=== PATIENT | male | born 1960 | race African-American/Black ===

== ENCOUNTER 2018-09-03 19:55 | Emergency (ER) | payer OTHER ==
[~2018-09-03] VITALS: Ht 182.9 cm; Wt 73.0 kg
[2018-09-03] MEDS ORDERED: LORazepam Inj 2mg/ml 1ml IVP ONE (20:00)
--- NOTE | 2018-09-03 20:02 | NUR ---
Shahzad yepez in EDM - 09/03/18 at 2022 by LÁZARO ED Nurse Note: Collected blood and urine then sent to lab.
--- NOTE | 2018-09-03 20:02 | NUR ---
ED Nurse Note: Pt brought in by ambulance due to cocaine abuse. Pt admits on taking cocaine and last use was an hour prior to ED arrival. Denies SI. Pt is AAO x4, ambulatory with unlabored breathing. Noted pt to be very restless. No hand tremors.
--- NOTE | 2018-09-03 20:23 | NUR ---
ED Nurse Note: Collected blood and urine then sent to lab.
--- NOTE | 2018-09-03 20:32 | Emergency Room Report ---
History of Present Illness General Chief Complaint: Substance Abuse Source: Patient (Stanley Rodas MD) Present Illness HPI Patient is a 58-year-old male presented after increased agitation. Patient reportedly had been smoking cocaine approximately 1 hour prior to arrival. He reports having increased shortness of breath. Patient was brought in by EMS after increased agitation. Patient history is markedly limited by intoxication. (Stanley Rodas MD) Allergies: Coded Allergies: No Known Allergies (Unverified , 09/03/18) Patient History Past Medical History: see triage record Reviewed Nursing Documentation: PMH: Agreed; PSxH: Agreed (Stanley Rodas MD) Nursing Documentation-PMH Past Medical History: No Stated History (Stanley Rodas MD) Review of Systems All Other Systems: negative except mentioned in HPI (Stanley Rodas MD) Physical Exam Vital Signs Date Time Temp Pulse Resp B/P (MAP) Pulse Ox O2 Delivery O2 Flow Rate FiO2 09/03/18 19:52 98.2 77 24 100 Room Air Sp02 EP Interpretation: reviewed, normal General Appearance: normal inspection, alert Head: atraumatic ENT: normal ENT inspection, hearing grossly normal, normal voice Neck: normal inspection, full range of motion, supple, no bony tend Respiratory: normal inspection, lungs clear, normal breath sounds, no respiratory distress, no retraction, no wheezing Cardiovascular #1: regular rate, rhythm, no edema Gastrointestinal: normal inspection, normal bowel sounds, non tender, soft, no guarding, no hernia Genitourinary: no CVA tenderness Musculoskeletal: normal inspection, back normal, normal range of motion Neurologic: normal inspection, alert, responsive, speech normal Psychiatric: normal inspection, judgement/insight normal, mood/affect normal Skin: normal inspection, normal color, no rash (Stanley Rodas MD) Medical Decision Making Diagnostic Impression: Primary Impression: Substance abuse Additional Impression: Altered mental status Qualified Codes: R40.4 - Transient alteration of awareness ER Course Patient present for shortness of breath. Differential diagnosis include was not limited to pneumonitis, myocardial infarction, congestive heart failure among others. Because of complexity of patient's case laboratory testing and imaging studies were ordered. Patient was noted to be intoxicated with cocaine. He was given breathing treatments patient given IV Ativan. He was noted to have some improvement. (Stanley Rodas MD) ER Course Please see above. Patient previously sedated with Ativan. Patient still lethargic. Unable to ambulate. Signed out to Dr. Olivares. (Boaz Honeycutt MD) ER Course Patient presents to the emergency department today with altered mental status secondary to drug abuse. I received signout and took over care of this patient. I continue to monitor patient here in the emergency department. I reviewed his laboratory testing. Patient is back to baseline mentally. He is able to eat. He is advised to stop abusing drugs. Recommend outpatient follow- up. Patient is advised to follow up with primary doctor in 2-3 days and return the emergency room for any worsening symptoms and as needed. Labs Test 09/03/18 20:15 White Blood Count 12.7 K/UL (4.8-10.8) Red Blood Count 4.49 M/UL (4.70-6.10) Hemoglobin 12.3 G/DL (14.2-18.0) Hematocrit 37.6 % (42.0-52.0) Mean Corpuscular Volume 84 FL (80-99) Mean Corpuscular Hemoglobin 27.4 PG (27.0-31.0) Mean Corpuscular Hemoglobin Concent 32.7 G/DL (32.0-36.0) Red Cell Distribution Width 13.6 % (11.6-14.8) Platelet Count 276 K/UL (150-450) Mean Platelet Volume 5.2 FL (6.5-10.1) Neutrophils (%) (Auto) 58.3 % (45.0-75.0) Lymphocytes (%) (Auto) 30.7 % (20.0-45.0) Monocytes (%) (Auto) 9.2 % (1.0-10.0) Eosinophils (%) (Auto) 0.8 % (0.0-3.0) Basophils (%) (Auto) 1.0 % (0.0-2.0) Urine Color Yellow Urine Appearance Clear Urine pH 6 (4.5-8.0) Urine Specific Pala 1.015 (1.005-1.035) Urine Protein Negative (NEGATIVE) Urine Glucose (UA) Negative (NEGATIVE) Urine Ketones Negative (NEGATIVE) Urine Blood Negative (NEGATIVE) Urine Nitrite Negative (NEGATIVE) Urine Bilirubin Negative (NEGATIVE) Urine Urobilinogen 1 MG/DL (0.0-1.0) Urine Leukocyte Esterase 1+ (NEGATIVE) Urine RBC 0-2 /HPF (0 - 0) Urine WBC 2-4 /HPF (0 - 0) Urine Squamous Epithelial Cells Few /LPF (NONE/OCC) Urine Bacteria Few /HPF (NONE) Sodium Level 142 MMOL/L (136-145) Potassium Level 3.4 MMOL/L (3.5-5.1) Chloride Level 105 MMOL/L (98-107) Carbon Dioxide Level 27 MMOL/L (21-32) Anion Gap 10 mmol/L (5-15) Blood Urea Nitrogen 19 mg/dL (7-18) Creatinine 1.3 MG/DL (0.55-1.30) Estimat Glomerular Filtration Rate 56.7 mL/min (>60) Glucose Level 104 MG/DL (74-106) Calcium Level 9.7 MG/DL (8.5-10.1) Total Bilirubin 1.2 MG/DL (0.2-1.0) Direct Bilirubin 0.2 MG/DL (0.0-0.3) Aspartate Amino Transf (AST/SGOT) 58 U/L (15-37) Alanine Aminotransferase (ALT/SGPT) 83 U/L (12-78) Alkaline Phosphatase 191 U/L (46-116) Total Creatine Kinase 413 U/L (26-308) Troponin I 0.013 ng/mL (0.000-0.056) Total Protein 7.3 G/DL (6.4-8.2) Albumin 3.5 G/DL (3.4-5.0) Globulin 3.8 g/dL Albumin/Globulin Ratio 0.9 (1.0-2.7) Salicylates Level 0.9 ug/mL (2.8-20) Urine Opiates Screen Negative (NEGATIVE) Acetaminophen Level < 2 MCG/ML (10-30) Urine Barbiturates Screen Negative (NEGATIVE) Phencyclidine (PCP) Screen Positive (NEGATIVE) Urine Amphetamines Screen Negative (NEGATIVE) Urine Benzodiazepines Screen Negative (NEGATIVE) Urine Cocaine Screen Positive (NEGATIVE) Urine Marijuana (THC) Screen Positive (NEGATIVE) Serum Alcohol < 3 mg/dL (Armand Olivares MD) Last Vital Signs Date Time Temp Pulse Resp B/P (MAP) Pulse Ox O2 Delivery O2 Flow Rate FiO2 09/03/18 20:02 77 24 Room Air 09/03/18 19:52 98.2 100 (Stanley Rodas MD) Status: improved (Boaz Honeycutt MD) Status: improved (Armand Olivares MD) Disposition: HOME, SELF-CARE Condition: Stable Stanley Rodas MD September 03, 2018 20:32 Boaz Honeycutt MD September 04, 2018 06:43 Armand Olivares MD September 04, 2018 09:25
[2018-09-03 20:38] VITALS: BP 122/73
--- NOTE | 2018-09-03 20:40 | NUR ---
ED Nurse Note: Found crack pipe and [employer] on pt's pocket. Placed on psych locker 3.
--- NOTE | 2018-09-03 20:45 | NUR ---
HAND-OFF: Report given to Nguyen RIZO.
[2018-09-03 20:50] LABS: APPEARANCE,URINE CLEAR; BILIRUBIN, URINE NEGATIVE (NEGATIVE); EOSINOPHILS % (AUTO) 0.8 % (0.0-3.0); GLUCOSE, URINE (UA) NEGATIVE (NEGATIVE); HEMATOCRIT 37.6 % (42.0-52.0); HEMOGLOBIN 12.3 G/DL (14.2-18.0); KETONES,URINE NEGATIVE (NEGATIVE); LEUKOCYTE ESTERASE ,URINE 1+ (NEGATIVE); LYMPHOCYTES % (AUTO) 30.7 % (20.0-45.0); MEAN CORPUSCULAR VOLUME 84 FL (80-99); MONOCYTES % (AUTO) 9.2 % (1.0-10.0); NEUTROPHILS % (AUTO) 58.3 % (45.0-75.0); NITRITE,URINE NEGATIVE (NEGATIVE); PH,URINE 6 (4.5-8.0); PLATELET COUNT 276 K/UL (150-450); PROTEIN,URINE NEGATIVE (NEGATIVE); RED BLOOD COUNT 4.49 M/UL (4.70-6.10); RED CELL DISTRIBUTION WIDTH 13.6 % (11.6-14.8); UROBILINOGEN,URINE 1 MG/DL (0.0-1.0); WHITE BLOOD COUNT 12.7 K/UL (4.8-10.8)
[2018-09-03 20:57] LABS: COLOR,URINE YELLOW
[2018-09-03 21:04] LABS: ANION GAP 10 mmol/L (5-15); BLOOD UREA NITROGEN 19 mg/dL (7-18); CALCIUM 9.7 MG/DL (8.5-10.1); CARBON DIOXIDE 27 MMOL/L (21-32); CHLORIDE 105 MMOL/L (98-107); CREATININE 1.3 MG/DL (0.55-1.30); POTASSIUM 3.4 MMOL/L (3.5-5.1); SODIUM 142 MMOL/L (136-145)
[2018-09-03 21:14] LABS: ALANINE AMINOTRANSFERASE 83 U/L (12-78); ALBUMIN 3.5 G/DL (3.4-5.0); ALBUMIN/GLOBULIN RATIO 0.9 (1.0-2.7); ALKALINE PHOSPHATASE 191 U/L (46-116); ASPARTATE AMINO TRANSFERASE 58 U/L (15-37); BILIRUBIN,TOTAL 1.2 MG/DL (0.2-1.0); CREATINE KINASE 413 U/L (26-308)
[2018-09-03 21:16] LABS: BILIRUBIN,DIRECT 0.2 MG/DL (0.0-0.3)
[2018-09-03 22:40] VITALS: BP 124/81
--- NOTE | 2018-09-03 22:40 | NUR ---
ED Nurse Note: pt has unstable gait but is able to void
[2018-09-04 00:40] VITALS: BP 134/79
--- NOTE | 2018-09-04 00:40 | NUR ---
ED Nurse Note: pt was provided another blanket, pt is resting in bed.
[2018-09-04 02:19] VITALS: BP 129/80
--- NOTE | 2018-09-04 02:50 | NUR ---
ED Nurse Note: pt is asleep at this time, vss.
--- NOTE | 2018-09-04 07:10 | NUR ---
HAND-OFF: Report given to aman moreno.
--- NOTE | 2018-09-04 08:36 | NUR ---
ED Nurse Note: Noted pt to be sleeping with respirations even and non labored. Will continue to assess.
[2018-09-04 09:12] VITALS: BP 122/79
--- NOTE | 2018-09-04 09:12 | NUR ---
ER DISCHARGE NOTE: Patient is cleared to be discharged per ERMD, pt is aox4, on room air, with stable vital signs. pt was given dc instructions, pt was able to verbalize understanding, pt id band and iv site removed without complications. pt is able to ambulate with steady gait. pt took all belongings.
== END 2018-09-04 09:12 | disposition home or self-care (01) ==
LOC: EDBD 19:55 → EMR 20:27
DX: F19.10 Other psychoactive substance abuse, uncomplicated (principal); R40.4 Transient alteration of awareness; F14.129 Cocaine abuse with intoxication, unspecified
CPT/HCPCS: 36415; 80053; 80307; 80329; 81003; 82248; 82550; 84484; 85025; 93005; 96374; 99284